=== PATIENT | male | born 2000 | race Caucasian/White ===

== ENCOUNTER 2024-02-19 12:26 | Emergency (ER) | payer BC ==
[~2024-02-19] VITALS: Ht 175.3 cm; Wt 59.0 kg
[2024-02-19 12:29] VITALS: BP 150/80; PULSE 98; RESP 18; TEMP 98; O2SAT 99
--- NOTE | 2024-02-19 12:36 | ERN ---
ED Note History of Present Illness Stated Complaint: CHEST PAIN Chief Complaint: Chest Pain Time Seen by MD: 12:29 Dictation: PATIENT IS A 23-YEAR-OLD MALE COMING IN VIA EMS WITH COMPLAINTS OF ANXIETY AND CHEST PAIN WHILE HE WAS DRIVING. HE DENIES FEVER CHILLS NAUSEA VOMITING OR PAIN NO BACK PAIN. STATES HE DOES NOT HAVE A HISTORY OF CAD HYPERTENSION DIABETES. SAID THE PAIN IS NOW RESOLVED. STATES HE WENT TO THE EMS STATION AND THEY ADVISED HIM TO COME TO THE EMERGENCY ROOM FOR EVALUATION DUE TO ELEVATED BLOOD PRESSURE. NO PRIMARY CARE DOCTOR Allergies: Coded Allergies: No Known Allergies (Unverified Allergy, Unknown, 02/19/24) Past Medical History Past Medical History: No Pertinent History Surgical History: None Social History: Smokers RN Note Reviewed/Agreed w/PFSH: Yes Review of System Dictation CONSTITUTIONAL: NEGATIVE EXCEPT FOR HPI HEAD/FACE: NEGATIVE EXCEPT FOR HPI EENT: NEGATIVE EXCEPT FOR HPI RESPIRATORY: NEGATIVE EXCEPT FOR HPI CHEST PAIN GASTROINTESTINAL/ABDOMINAL: NEGATIVE EXCEPT FOR HPI GENITOURINARY: NEGATIVE EXCEPT FOR HPI MUSCULOSKELETAL: NEGATIVE EXCEPT FOR HPI INTEGUMENTARY: NEGATIVE EXCEPT FOR HPI NEUROLOGICAL/PSYCH: NEGATIVE EXCEPT FOR HPI HEMATOLOGIC/LYMPHATIC: NEGATIVE EXCEPT FOR HPI ALL SYSTEMS NEGATIVE, EXCEPT NOTED ABOVE. 13 POINT REVIEW OF SYSTEMS ASSESSED AND ALL NEGATIVE EXCEPT FOR ABOVE. Initial Vital Sign VS Vital Signs Date Time Temp Pulse Resp B/P (MAP) Pulse Ox O2 Delivery O2 Flow Rate FiO2 02/19/24 12:29 98.1 98 18 150/80 99 Room Air 02/19/24 12:29 0 21 Physical Exam Dictation VITAL SIGNS REVIEWED GENERAL APPEARANCE: ALERT, ORIENTED X 3, NO ACUTE DISTRESS, WELL DEVELOPED, NOURISHED. NO COMPLAINTS OF PAIN AT THIS TIME 0/10 HEAD AND FACE: NON-TRAUMATIC. EYES: PERRL, PINK CONJUNCTIVAS, EYELID NO TRAUMA, ANTERIOR CHAMBER WITH ARCUS SENILIS. EARS: PINNAS INTACT AND NO SIGNS OF TRAUMA OR ERYTHEMA EAR CANALS CLEAR AND NO DISCHARGE TM NO ERYTHEMA NOSE: NO DISCHARGE, NO BLEEDING. OROPHARYNX: MOUTH NORMAL, TONGUE PINK, PHARYNX CLEAR,NO ERYTHEMA, TONSILS NO EXUDATES, NO ABSCESSES NOTED, MUCOUS MEMBRANE MOIST NECK: SUPPLE, NON-TENDER, NO THYROMEGALY, NO MASSES, NO JVD, NO BRUITS BREAST:DEFERRED CHEST:NO TENDERNESS, NO CREPITUS, NO PARADOXICAL MOVEMENT, NO RETRACTIONS LUNGS:CLEAR, WELL-VENTILATED, SYMMETRIC, NO RALES, NO WHEEZING, NO RHONCHI, NO STRIDOR, GOOD BREATH SOUNDS BILATERALLY HEART: REGULAR RATE, REGULAR RHYTHM, NO MURMUR, NO GALLOPS VASCULAR: NO PERIPHERAL EDEMA, ABDOMEN: SOFT, POSITIVE BOWEL SOUNDS, NONDISTENDED, NO GUARDING, NONTENDER, NO REBOUND, NO MASSES NO HEPATOMEGALY, NO SPLENOMEGALY, NO MORALES'S SIGN, NO HERNIAS. RECTAL: DEFERRED GENITAL: DEFERRED NEUROLOGICAL: NORMAL SPEECH, MOTOR FUNCTION INTACT, SENSORY FUNCTION INTACT MUSCULOSKELETAL: NECK NONTENDER, FULL RANGE OF MOTION, BACK NONTENDER, FULL RANGE OF MOTION, EXTREMITIES: NONTENDER, FULL RANGE OF MOTION SKIN: COLOR PINK, DRY, NO TURGOR, NO RASH, NO LACERATIONS, NO ABRASIONS, NO CONTUSIONS. LYMPHATIC: DEFERRED Results (Laboratory/Radiology) Labs Reviewed?: Yes ED Course ED Course Orders Procedure Category Date Status Time 12 Lead Ekg Tracing- EKG 02/19/24 Logged Technical 12:34 Cbc With Differential LAB 02/19/24 Logged 12:45 Troponin I High LAB 02/19/24 Logged Sensitivity 12:45 Basic Metabolic Panel LAB 02/19/24 Logged 12:45 Vital Signs Date Time Temp Pulse Resp B/P (MAP) Pulse Ox O2 Delivery O2 Flow Rate FiO2 02/19/24 12:29 98.1 98 18 150/80 99 Room Air* 0 21 02/19/24 12:29 98.1 98 18 150/80 99 Room Air Medical Decision Making MDM Medical discharge making Patient told the RN that was taking care of him that he did not want to be here any longer, signed against medical advice and left without any DX & DISP Disposition: AMA Departure Impression: Primary Impression: Panic attack Condition: Stable Referrals: SELF,REFERRAL (PCP) Time of Disposition: 13:14 I have reviewed the case, and I agree with, Diagnosis and Plan HUNTER DELGADILLO NP Feb 19, 2024 12:36
--- NOTE | 2024-02-19 13:07 | NUR ---
PT WALKED OUT OF BAY, CAUGHT WALKING THROUGH DISCHARGE DOOR, ASKED PT WHERE HE WS GOING, PT STATED HE WANTS TO LEAVE HE IS FINE DOESNT WANT TO SEE DOCTOR. INFORMED I WOULD NEED TO LET DOCTOR KNOW, INFORMED DR. GARAY AT 1305, STATED PT WOULD NEED TO AMA. INFORMED PT , HE AGREED AND SIGNED AMA FORM. PT WALKED OUT TO ED [facility]. INFORMED HUNTER Toussaint NP.
== END 2024-02-19 13:05 | disposition left against medical advice (07) ==
LOC: EDH 12:26
DX: F41.0 Panic disorder [episodic paroxysmal anxiety] (principal); F17.200 Nicotine dependence, unspecified, uncomplicated
CPT/HCPCS: 99283